=== PATIENT | male | born 1975 | race African-American/Black ===

== ENCOUNTER 2023-07-31 16:55 | Emergency (ER) | payer MEDICAID ==
[~2023-07-31] VITALS: Ht 165.1 cm; Wt 81.6 kg
[2023-07-31] MEDS ORDERED: IBUP-1953 PO (17:43)
[2023-07-31] MEDS ORDERED: AMLO1CAP6 PO (17:43)
[2023-07-31 17:58] VITALS: BP 187/102; TEMP 98; O2SAT 100
== END 2023-07-31 17:58 | disposition home or self-care (01) ==
LOC: ER 16:55
DX: Z76.0 Encounter for issue of repeat prescription (principal); I10 Essential (primary) hypertension

== ENCOUNTER 2023-08-22 14:18 | Emergency (ER) | payer MEDICAID ==
[~2023-08-22] VITALS: Ht 162.6 cm; Wt 77.1 kg
[~2023-08-22 14:18] MED LIST: AMLO1CAP6 PO; IBUP-1953 PO
[2023-08-22 15:19] VITALS: BP 160/94; TEMP 98; O2SAT 98
== END 2023-08-22 15:19 | disposition home or self-care (01) ==
LOC: ER 14:18
DX: I10 Essential (primary) hypertension (principal); Z76.0 Encounter for issue of repeat prescription; Z79.899 Other long term (current) drug therapy

== ENCOUNTER 2023-11-08 17:43 | Emergency (ER) | payer SELFPAY ==
[~2023-11-08] VITALS: Ht 162.6 cm; Wt 82.6 kg
[2023-11-08] MEDS ORDERED: BENA40TA8 PO ×2 (18:52→18:54)
[2023-11-08] MEDS ORDERED: AMLO-213 PO (18:54)
[2023-11-08 19:00] VITALS: BP 170/98; TEMP 98.1; O2SAT 97
[2023-11-08] MEDS ORDERED: AMLODIPINE BESYLATE 5 MG TABLET PO ONE (19:00)
== END 2023-11-08 19:02 | disposition home or self-care (01) ==
LOC: ER 17:58
DX: M65.4 Radial styloid tenosynovitis [de Quervain] (principal); I10 Essential (primary) hypertension; Z76.0 Encounter for issue of repeat prescription; Z79.899 Other long term (current) drug therapy